=== PATIENT | female | born 1930 | race American Indian/Alaskan Native ===

== ENCOUNTER 2018-03-22 20:02 | Emergency (ER) | payer MEDICARE ==
[2018-03-22 20:03] VITALS: PULSE 54; BMI 25.4
[2018-03-22] MEDS ORDERED: Oxycodone/Acetaminophen 5/325 mg Tab PO STA (20:51)
--- NOTE | 2018-03-22 21:01 | ED PDOC ---
Arrival/HPI - General Chief Complaint: Lower Extremity Problem/Injury Time Seen by Provider: 03/22/18 20:41 Historian: Patient, Family (daughter at bedside) - History of Present Illness Narrative History of Present Illness (Text): 03/22/182039 pt p/w + 2 weeks onset of waxing and waning b/l foot/ankle swelling; pt states over the last few days, foot/ankle swelling has been worse and now with progressively worsening pain; pt states walking/movement/weight bearing causes more pain; pt states otherwise without any medical complaints; pt states no fever/chills/sweats, no cp/sob/palpitations, no abd pain, no n/v, no numbness/ tingling, no urinary/bowel changes, no bleeding, no fall/trauma/sick contact, no travel; pt denied other complaints. pt is here for further eval. PCP: DR Vo pt lives with daughter pt ambulate with walker assistance Time/Duration: > week (2 weeks) Symptom Onset: Gradual Symptom Course: Worsening Quality: Tightness, Cramping Severity Level: Severe Activities at Onset: Other (worse with walking) Context: Walking, Exertion, Home Past Medical History - Provider Review Nursing Documentation Reviewed: Yes - Travel History Have you recently traveled outside [place] w/in the past 3 mons?: No - Past History Past History: Non-Contributing - Infectious Disease Hx of Infectious Diseases: None - Tetanus Immunization Tetanus Immunization: Unknown - Reproductive Menopause: Yes Currently : No - Cardiac Hx Hypertension: Yes - HEENT Hx Cataracts: Yes - Endocrine/Metabolic Hx Diabetes Mellitus Type 2: Yes - Hematological/Oncological Hx Blood Disorders: (blood transfusions) - Musculoskeletal/Rheumatological Hx Arthritis: Yes - Gastrointestinal Hx Gastrointestinal Disorders: Yes (gi bleed) Hx Diverticulitis: Yes Hx Gastroesophageal Reflux: Yes - Psychiatric Hx Depression: No Hx Emotional Abuse: No Hx Physical Abuse: No Hx Substance Use: No - Surgical History Hx Orthopedic Surgery: Yes (right total hip replacement) Other/Comment: 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 - Anesthesia Hx Anesthesia Reactions: No Hx Malignant Hyperthermia: No - Suicidal Assessment Feels Threatened In Home Enviroment: No Family/Social History - Physician Review Nursing Documentation Reviewed: Yes Family/Social History: No Known Family HX Smoking Status: Never Smoked Hx Alcohol Use: No Hx Substance Use: No Hx Substance Use Treatment: No Allergies/Home Meds Allergies/Adverse Reactions: Allergies No Known Allergies Allergy (Verified 07/04/15 15:04) Home Medications: Home Meds Medication Instructions Recorded Confirmed Dexlansoprazole [Dexilant] 60 mg PO DAILY 06/12/12 07/04/15 Folic Acid 1 mg PO DAILY 06/12/12 07/04/15 Magnesium Oxide 400 mg PO DAILY 06/12/12 07/04/15 Ramipril [Altace] 10 mg PO BID 06/12/12 07/04/15 Acetaminophen [Tylenol] 650 mg PO BID PRN 07/04/15 07/04/15 Allopurinol 100 mg PO DAILY 07/04/15 07/04/15 Carvedilol [Coreg] 3.125 mg PO BID 07/04/15 07/04/15 Cholestyramine [Questran] 4 gm PO BID 07/04/15 07/04/15 Cyproheptadine [Periactin] 4 mg PO BID 07/04/15 07/04/15 Digoxin 0.125 mg PO DAILY 07/04/15 07/04/15 Donepezil Hydrochloride [Aricept] 5 mg PO DAILY 07/04/15 07/04/15 Ergocalciferol [Drisdol 50,000 1 cap PO Q7D 07/04/15 07/04/15 Intl Units Cap] Ezetimibe [Zetia] 10 mg PO DAILY 07/04/15 07/04/15 Furosemide [Lasix] 20 mg PO DAILY 07/04/15 07/04/15 Multivit,Iron,Min 5/Folic Acid 1 tab PO DAILY 07/04/15 07/04/15 [Strovite Forte Caplet] Rosuvastatin Calcium [Crestor] 10 mg PO HS 07/04/15 07/04/15 oxyCODONE/Acetaminophen [Percocet 1 ea PO DAILY PRN 07/04/15 07/04/15 5/325 mg Tab] Review of Systems - Review of Systems Constitutional: Normal Eyes: Normal ENT: Normal Respiratory: Normal. absent: SOB Cardiovascular: Normal. absent: Chest Pain Gastrointestinal: Normal. absent: Abdominal Pain Genitourinary Female: Normal Musculoskeletal: Other (b/l foot/ankle swelling, and now pain) Skin: Normal Neurological: Normal Endocrine: Normal Hemo/Lymphatic: Normal Psychiatric: Normal Physical Exam - Physical Exam Narrative Physical Exam (Text): 03/22/182039 General: alert/awake, GCS = 15, oriented x 3, resting in bed, mildly uncomfortable, cooperative, interactive; NAD Head: NC/AT; bi-temporal wasting EYE: PERRLA, EOMI, sclera anicteric, no nystagmus, no photophobia; visual field intact b/l; wearing eyeglasses Facial: WNL Oral: uvula/tongue are midline, no exudate/lesions, no drooling/stridor, no dysphonia; poor dentitions; mild dry oral mucosa NECK: intact ROM, no midline tenderness, no nuchal rigidity, no meningeal signs ; no step off Chest: CTA b/l, no w/r/r; no tachypenia, no accessory muscle use noted Cardiac: +S1, +S2, no m/r/r, no tachycardia Abdominal: +BS, soft/nd/nt, well nourished patient; no masses/rebound/guarding/ rigidity; no jacobson's sign, no mcburney's point tenderness Extremities: decr ROM to b/l ankles due to some pain/swelling; otherwise intact ROM rest of the limbs b/l; strength 5/5 grossly intact in all limbs, neurovasc intact b/l; reflex +2/2; + b/l ankle/foot swelling is noted, NO pitting edema; no elmer's sign b/l BACK: no step off, no midline tenderness, NO crepitus, severe kyphosis noted; decr ROM SKIN: cap refill < 1 sec, no ulcerations, no petechiae, no rashes NEURO: CNII-XII WNL, no facial asymmetries, no slurr speech, oriented x 3 NIH stroke scale ~ 0 Psych: normal insight, normal affect; follows command with ease Vital Signs Reviewed: Yes Vital Signs Temp Pulse Resp BP Pulse Ox 03/23/18 00:16 99 F 60 18 118/71 99 03/23/18 00:03 99 F 60 18 116/70 98 03/22/18 22:18 118/55 L 03/22/18 20:11 99.0 F 55 L 24 128/82 97 Temperature: Afebrile Blood Pressure: Normal Pulse: Bradycardic Respiratory Rate: Normal Appearance: Positive for: Well-Appearing, Non-Toxic, Uncomfortable. No: Ill- Appearing, Unkept Pain Distress: None Mental Status: Positive for: Alert and Oriented X 3 - Systems Exam Head: Present: Atraumatic, Normocephalic Medical Decision Making ED Course and Treatment: 03/22/182039 Impression: b/l ankle/foot swelling, NO trauma i have consider all the differential diagnosis regarding pt's chief medical complaints/clinical findings, including but are not limited to: r/o dvt ( unlikely), 3rd spacing; unlikely fx, unlikely CHF? A/P: b/l ankle/foot swelling, NO trauma - labs - iv - xray - ultrasound - diuretics, pain control - supportive care - observe/reevaluation 03/22/18 22:17 Dr. Vo made aware of patient's emergent complaints, diagnostic finds, and emergency department management. States that patient is on PRN Lasix and pain medications at home and to remind patient to take them if her symptoms are worse. If negative diagnostic results, patient can be discharged home with outpatient followup. 03/22/18 22:55 pt is doing well pt is able to stand and ambulate, using the wheelchair as a walker, able to walk to the bathroom with ease pt is awaiting lab results 03/22/18 23:20 pt remained comfortable pt is not in any distress pt denied any sob/chest pain pt/daughter are made aware of pt's medical results pt is encouraged daily lasix until she sees her PCP pt is encouraged continued compressive stocking for her lower extremities pt is encouraged elevating her legs to decrease swelling pt will f/u as directed pt will be discharged home 2330 pt is made aware of her medical/lab results pt is aware of the elevated BNP, but with negative xray for Pulm edema, instructed patient to observe her breathing; pt is to take her lasixs daily and follow up with Dr Vo this week pt will be discharged home Re-evaluation Time: 22:50 Reassessment Condition: Improving,but remains with symptoms - Lab Interpretations Lab Results: 03/22/18 22:45 03/22/18 22:45 Lab Results 03/22/18 22:45: Sodium 143, Chloride 105, Potassium 4.3, Carbon Dioxide 26, Anion Gap 17, BUN 15, Creatinine 0.8, Est GFR ( Amer) > 60, Est GFR (Non- Af Amer) > 60, Random Glucose 93, Calcium 9.3, Magnesium 1.8, Total Bilirubin 0.4, AST 31, ALT 15, Alkaline Phosphatase 101, Lactate Dehydrogenase 506, Total Creatine Kinase 136, Troponin I < 0.01 D, NT-Pro-B Natriuret Pep 2870 H, Total Protein 6.8, Albumin 4.0, Globulin 2.9, Albumin/Globulin Ratio 1.4 03/22/18 22:45: pO2 52, VBG pH 7.33, VBG pCO2 50.0, VBG HCO3 26.4, VBG Total CO2 27.9, VBG O2 Sat (Calc) 91.2 H, VBG Base Excess -0.2 L, VBG Potassium 4.2, Sodium 140.0, Chloride 108.0 H, Glucose 95, Lactate 1.3, FiO2 21.0, Venous Blood Potassium 4.2 03/22/18 22:45: WBC 3.8 L D, RBC 3.86, Hgb 12.0, Hct 37.0, MCV 95.9, MCH 31.1, MCHC 32.4, RDW 14.2, Plt Count 206, MPV 11.2 H, Gran % 62.9, Lymph % (Auto) 22.5 , Phillips % (Auto) 11.7 H, Eos % (Auto) 2.9, Baso % (Auto) 0.0, Gran # 2.37, Lymph # (Auto) 0.9 L, Phillips # (Auto) 0.4, Eos # (Auto) 0.1, Baso # (Auto) 0.00 I have reviewed the lab results: Yes Interpretation: Abnormal lab values (elevated BNP) - RAD Interpretation Narrative RAD Interpretations (Text): 03/22/18 22:03 PRELIM results: Chest X-Ray - severe kyphosis, right lower lobe hyperdensity structure b/l ankle xray - Osteopenia, no acute fx/dislocation, + STS, no FB noted B/L lower ext U/S - NO DVT b/l Radiology Orders: 03/22/18 20:50 CHEST TWO VIEWS (PA/LAT) [RAD] Stat DUPLEX LOWER EXTRM VEIN BILAT [US] Stat 03/22/18 20:53 ANKLE LEFT 3 VIEWS ROUTINE [RAD] Stat ANKLE RIGHT 3 VIEWS ROUTINE [RAD] Stat Gas Singer: ED Physician, Radiologist - Medication Orders Current Medication Orders: Discontinued Medications Furosemide (Lasix) 40 mg IVP STAT STA Stop: 03/22/18 20:51 Last Admin: 03/22/18 22:18 Dose: 40 mg MAR Blood Pressure Document 03/22/18 22:18 LA (Rec: 03/22/18 22:21 LA [id number]) Blood Pressure Blood Pressure (100/60-150/90) 118/55 IVP Administration Document 03/22/18 22:18 LA (Rec: 03/22/18 22:21 LA [id number]) Charges for Administration # of IVP Administrations 1 Oxycodone/Acetaminophen (Percocet 5/325 Mg Tab) 1 tab PO STAT STA Stop: 03/22/18 20:52 Last Admin: 03/22/18 22:21 Dose: 1 tab MAR Pain Assessment Document 03/22/18 22:21 LA (Rec: 03/22/18 22:22 LA [id number]) Pain Reassessment Is this a pain reassessment? No Sleep Is patient sleeping during reassessment? No Presence of Pain Presence of Pain Yes Pain Scale Used Pain Scale Used Numeric Location Left, Right or Bilateral Bilateral Upper or Lower Lower Pain Location Body Site Leg Disposition/Present on Arrival - Present on Arrival Any Indicators Present on Arrival: No History of DVT/PE: No History of Uncontrolled Diabetes: No Urinary Catheter: No History of Decub. Ulcer: No History Surgical Site Infection Following: None - Disposition Have Diagnosis and Disposition been Completed?: Yes Diagnosis: Pedal edema, Joint pain Disposition: HOME/ ROUTINE Disposition Time: 23:30 Patient Plan: Discharge Condition: STABLE Discharge Instructions (ExitCare): Dependent Edema (DC), Joint Pain Print Language: MACEDONIAN Additional Instructions: Make sure to see your doctor in 1-2 days DRINK PLENTY OF FLUIDS take your medications as prescribed Continue to wear the nikolas-hose stockings Walk with walker you should take 1 dose of lasix every day as directed by Dr Vo RETURN TO ED IF worse pain, cant breath, persistent vomiting, high fever >101- 102 for hours, altered behavior, slurr speech, facial changes, focal weakness ( arm/leg or both), unable to urinate, heavy/persistent bleeding, passing out, chest pain, or other medical emergencies Prescriptions: Furosemide [Lasix] 20 mg PO DAILY PRN #7 tablet PRN Reason: Swelling Referrals: Guille Vo MD [Primary Care Provider] - Follow up with primary Forms: [employer] (Kazakh)
[2018-03-22 22:58] LABS: VENOUS BLOOD GAS BASE EXCESS -0.2 mmol/L (0.0-2.0); VENOUS BLOOD GAS PO2 52 mm/Hg (30-55); VENOUS BLOOD PH 7.33 (7.32-7.43)
[2018-03-22 23:09] LABS: ALB/GLOB RATIO 1.4 (1.1-1.8); ALT/SGPT 15 U/L (7-56); AST/SGOT 31 U/L (14-36); BLOOD UREA NITROGEN 15 mg/dL (7-21); CALCIUM 9.3 mg/dL (8.4-10.5); GFR AFRICAN-AMERICAN > 60; GFR NON-AFRICAN AMERICAN > 60
[2018-03-22 23:20] LABS: B-TYPE NATRIURETIC PEPTIDE 2870 pg/mL (0-450); TROPONIN I < 0.01 ng/mL
[2018-03-22 23:24] LABS: EOS # 0.1 (0.0-0.7); EOS % 2.9 % (1.5-5.0); GRAN # 2.37 (1.4-6.5); GRAN % 62.9 % (50.0-68.0); LYMPH # 0.9 (1.2-3.4); LYMPH % 22.5 % (22.0-35.0); MEAN CELL VOLUME 95.9 fl (80.0-105.0); MEAN CORPUSCULAR HEMOGLOBIN 31.1 pg (25.0-35.0); MEAN CORPUSCULAR HGB CONC 32.4 g/dl (31.0-37.0); MEAN PLATELET VOLUME 11.2 fl (7.0-11.0); MONO # 0.4 (0.1-0.6); MONO % 11.7 % (1.0-6.0); RBC 3.86 10^6/uL (3.5-6.1); RED CELL DISTRIBUTION WIDTH 14.2 % (11.5-14.5); WHITE BLOOD COUNT 3.8 10^3/ul (4.5-11.0)
[2018-03-23 00:05] VITALS: PULSE 60; RESP 18; TEMP 99
[2018-03-23 00:17] VITALS: BP 118/71; O2SAT 99
--- NOTE | 2018-03-23 09:14 | RAD ---
PROCEDURE: Right Ankle Radiographs. Seven HISTORY: no trauma, b/l ankle swelling COMPARISON: None FINDINGS: BONES: Small calcaneal spurs. No identifiable fracture JOINTS: Normal. No osteoarthritis. Ankle mortise maintained. Talar dome intact SOFT TISSUES: Circumferential soft tissue swelling about the ankle. OTHER FINDINGS: None. IMPRESSION: Soft tissue swelling without acute articular or osseous abnormality. Concordant results with the preliminary interpretation rendered by the emergency department physician procedure.
--- NOTE | 2018-03-23 09:15 | RAD ---
PROCEDURE: Left Ankle Radiographs. HISTORY: no trauma, b/l ankle/foot swelling COMPARISON: None FINDINGS: BONES: Small calcaneal spurs. JOINTS: Normal. No osteoarthritis. Ankle mortise maintained. Talar dome intact SOFT TISSUES: Soft tissue swelling about the ankle and plantar aspect of the foot. OTHER FINDINGS: None. IMPRESSION: Soft tissue swelling without acute articular or osseous abnormality. Concordant results with the preliminary interpretation rendered by the emergency department physician procedure.
--- NOTE | 2018-03-23 09:15 | RAD ---
HISTORY: Leg swelling. COMPARISON: 07/04/2015. TECHNIQUE: Chest PA and lateral FINDINGS: LUNGS: No active pulmonary disease. PLEURA: No significant pleural effusion identified. No pneumothorax apparent. CARDIOVASCULAR: Cardiomegaly. No evidence of acute, significant cardiovascular disease. OSSEOUS STRUCTURES: Kyphosis without focal vertebral body abnormality. VISUALIZED UPPER ABDOMEN: Normal. OTHER FINDINGS: None. IMPRESSION: No active disease. No significant interval change compared to the prior examination(s). Concordant results with the preliminary interpretation rendered by the emergency department physician procedure.
--- NOTE | 2018-03-24 09:09 | US ---
HISTORY: Leg pain and swelling. Evaluate for DVT PHYSICIAN(S): Trey Alcala MD. TECHNIQUE: Duplex sonography and color-flow Doppler with graded compression were used to evaluate the deep venous systems of both lower extremities. The exam is somewhat limited by edema. FINDINGS: The visualized deep venous systems of both lower extremities are sonographically normal and compressible. Normal wave forms and augmentation are seen. There is no sonographic evidence for deep venous thrombosis in the visualized segments of both lower extremities. IMPRESSION: No sonographic evidence for deep venous thrombosis in the visualized segments of both lower extremities.
== END 2018-03-23 00:16 | disposition home or self-care (01) ==
LOC: ED 20:02
DX: R60.9 Edema, unspecified (principal); M25.50 Pain in unspecified joint
CPT/HCPCS: 71046; 73610; 80053; 82550; 82803; 83615; 83735; 83880; 84484; 85025; 93970; 96374; 99284; J1940